=== PATIENT | female | born 1990 | race Caucasian/White ===

== ENCOUNTER 2017-05-25 06:48 | Inpatient (IN) | payer OTHER ==
[~2017-05-25] VITALS: Ht 167.6 cm; Wt 100.2 kg
== END 2017-05-27 11:37 | DRG 775 ==
LOC: LDR 06:48 → OB/GYN 19:48
PROC: 10E0XZZ Delivery of Products of Conception, External Approach (ICD-10-PCS; principal; 2017-05-25)
PROC: 3E033VJ Introduction of Other Hormone into Peripheral Vein, Percutaneous Approach (ICD-10-PCS; 2017-05-25)
PROC: 4A1HXCZ Monitoring of Products of Conception, Cardiac Rate, External Approach (ICD-10-PCS; 2017-05-25)
DX: O80 Encounter for full-term uncomplicated delivery (principal); Z3A.38 38 weeks gestation of pregnancy; Z37.0 Single live birth

== ENCOUNTER 2021-10-29 17:15 | Emergency (ER) | payer OTHER ==
[~2021-10-29] VITALS: Ht 167.6 cm; Wt 89.4 kg
[2021-10-29] MEDS ORDERED: EC-NAPROSYN375 MG PO (22:46)
[2021-10-29] MEDS ORDERED: TAMS0.4C PO (22:46)
== END 2021-10-29 23:25 | disposition home or self-care (01) ==
LOC: ER 17:15
DX: N23 Unspecified renal colic (principal); N13.2 Hydronephrosis with renal and ureteral calculous obstruction; N83.202 Unspecified ovarian cyst, left side

== ENCOUNTER 2022-04-07 08:49 | Day surgery (SDC) | payer OTHER ==
[~2022-04-07 08:49] MED LIST: EC-NAPROSYN375 MG PO; TAMS0.4C PO
== END 2022-04-07 19:10 | disposition home or self-care (01) ==
LOC: CIR.AMB 08:49
PROVIDERS: ATTEND Obstetrics & Gynecology
DX: Z30.2 Encounter for sterilization (principal); Z64.1 Problems related to multiparity; N83.202 Unspecified ovarian cyst, left side; Z20.822 Contact with and (suspected) exposure to COVID-19

== ENCOUNTER 2024-07-04 14:14 | Emergency (ER) | payer OTHER ==
[~2024-07-04] VITALS: Ht 167.6 cm; Wt 52.2 kg
[2024-07-04] MEDS ORDERED: KETOROLAC TROMETHAMINE 30 MG VIAL ONE (15:13)
[2024-07-04] MEDS ORDERED: 0.9 % SODIUM CHLORIDE 1,000 ML IV SCH (15:15)
[2024-07-04] MEDS ORDERED: KETOROLAC TROMETHAMINE 30 MG VIAL IV ONE (15:15)
[2024-07-04 16:11] LABS: PH,URINE 5.5 (5.0-8.0); URINE APPEARANCE Clear; URINE BILIRRUBIN Negative (NEGATIVE); URINE BLOOD Negative; URINE COLOR Yellow; URINE EPITHELIAL CELLS 23.4 uL (0.0-38.8); URINE GLUCOSE Negative (NEGATIVE); URINE KETONE Negative (NEGATIVE); URINE LEUKOCYTE Small; URINE NITRATE Negative; URINE PROTEIN Negative (NEGATIVE); URINE RBC 3.6 uL (0.0-20.8); URINE UROBILINOGEN 0.2 E.U./dl; URINE WBC 54.1 uL (0.0-23.2)
[2024-07-04 16:17] LABS: HEMATOCRIT 36.1 % (36.0-45.00); HEMOGLOBIN 11.9 g/dL (12.0-15.00); MEAN CELL VOLUME 90.5 fL (80.00-100.00); MEAN CORPUSCULAR HEMOGLOBIN 29.8 pg (27.00-32.0); PLATELET COUNT 289 K/uL (150-450); RED BLOOD COUNT 3.99 M/uL (4.00-6.00); RED CELL DISTRIBUTION WIDTH 14.4 % (11.5-14.5)
[2024-07-04 16:26] LABS: URINE CAST 0.73 uL (0.0-1.40)
[2024-07-04 16:40] LABS: ALBUMIN 3.5 gm/dL (3.4-5.0); BILIRUBIN TOTAL 0.35 mg/dL (0.3-1.2); CALCIUM 9.2 mg/dL (8.5-10.1); CREATININE SERUM 0.8 mg/dL (0.55-1.02); GFR 83.12; GLOBULINA 4.8 G/DL (2.4-3.5); POTASSIUM 3.43 mEq/L (3.5-5.1); TOTAL PROTEIN 8.3 gm/dL (6.4-8.2)
== END 2024-07-04 18:19 | disposition home or self-care (01) ==
LOC: ER 14:17
PROVIDERS: General Practice
DX: D27.1 Benign neoplasm of left ovary (principal); R10.2 Pelvic and perineal pain

== ENCOUNTER 2024-07-08 10:46 | Emergency (ER) | payer OTHER ==
[~2024-07-08] VITALS: Ht 167.6 cm; Wt 96.2 kg
[2024-07-08] MEDS ORDERED: DICLOFENAC SODI75 MG PO (11:51)
[2024-07-08] MEDS ORDERED: KETOROLAC TROMETHAMINE 60 MG VIAL IM ONE ×2 (13:30→13:34)
[2024-07-08 13:52] LABS: HEMATOCRIT 35.1 % (36.0-45.00); HEMOGLOBIN 12.6 g/dL (12.0-15.00); MEAN CELL VOLUME 88.9 fL (80.00-100.00); MEAN CORPUSCULAR HEMOGLOBIN 31.8 pg (27.00-32.0); MEAN CORPUSCULAR HGB CONC 35.7 g/dl (32.0-36.0); PLATELET COUNT 294 K/uL (150-450); RED BLOOD COUNT 3.95 M/uL (4.00-6.00); RED CELL DISTRIBUTION WIDTH 14.3 % (11.5-14.5)
[2024-07-08 14:32] LABS: PH,URINE 5.5 (5.0-8.0); URINE APPEARANCE Cloudy; URINE BILIRRUBIN Negative (NEGATIVE); URINE BLOOD Trace; URINE COLOR Yellow; URINE GLUCOSE Negative (NEGATIVE); URINE KETONE Negative (NEGATIVE); URINE LEUKOCYTE Moderate; URINE NITRATE Negative; URINE PROTEIN Negative (NEGATIVE); URINE UROBILINOGEN 0.2 E.U./dl
[2024-07-08 14:35] LABS: URINE BACTERIA 5491.9 uL (0.0-1933); URINE CAST 1.91 uL (0.0-1.40); URINE EPITHELIAL CELLS 19.9 uL (0.0-38.8); URINE RBC 3.8 uL (0.0-20.8); URINE WBC 218.8 uL (0.0-23.2)
[2024-07-08] MEDS ORDERED: ACETAMINOPHEN WITH CODEINE 1 UDTAB TABLET PO ONE (16:30)
== END 2024-07-08 16:46 | disposition home or self-care (01) ==
LOC: ER 10:48
PROVIDERS: Emergency Medicine
DX: D27.9 Benign neoplasm of unspecified ovary (principal)

== ENCOUNTER 2024-07-18 07:13 | Day surgery (SDC) | payer OTHER ==
[2024-07-16 10:49] LABS: URINE APPEARANCE Clear; URINE BILIRRUBIN Negative (NEGATIVE); URINE BLOOD Trace; URINE COLOR Yellow; URINE GLUCOSE Negative (NEGATIVE); URINE KETONE Negative (NEGATIVE); URINE LEUKOCYTE Small; URINE NITRATE Negative; URINE PROTEIN Negative (NEGATIVE); URINE UROBILINOGEN 0.2 E.U./dl
[2024-07-16 10:53] LABS: URINE RBC 2.7 uL (0.0-20.8)
[2024-07-16 11:10] LABS: HEMOGLOBIN 11.3 g/dL (12.0-15.00); MEAN CELL VOLUME 89.8 fL (80.00-100.00); MEAN CORPUSCULAR HEMOGLOBIN 29.7 pg (27.00-32.0); MEAN CORPUSCULAR HGB CONC 33.1 g/dl (32.0-36.0); PLATELET COUNT 298 K/uL (150-450); RED BLOOD COUNT 3.78 M/uL (4.00-6.00); RED CELL DISTRIBUTION WIDTH 14.6 % (11.5-14.5)
[2024-07-16 11:48] LABS: ALBUMIN 3.5 gm/dL (3.4-5.0); BILIRUBIN TOTAL 0.48 mg/dL (0.3-1.2); CREATININE SERUM 0.79 mg/dL (0.55-1.02); GFR 84.34; GLOBULINA 3.9 G/DL (2.4-3.5); POTASSIUM 3.95 mEq/L (3.5-5.1); TOTAL PROTEIN 7.4 gm/dL (6.4-8.2)
[~2024-07-18 07:13] MED LIST changes: +ACETAMINOPHEN-1 EAC1 PO; +DICLOFENAC SODI75 MG PO; +VOLTAREN
[2024-07-18] MEDS ORDERED: POVIDONE-IODINE 118 ML BOTT TOP ONE (11:23)
[2024-07-18] MEDS ORDERED: BUPIVACAINE HCL/MPF 0.5% 30ML VIAL ONE (12:27)
[2024-07-18] MEDS ORDERED: LIDOCAINE HCL 1%/EPINEPHRINE 20ML VIAL IJ ONE (12:27)
[2024-07-18] MEDS ORDERED: SUGAMMADEX SODIUM 200 MG/2 ML VIAL IV ONE (14:52)
[2024-07-18] MEDS ORDERED: MORPHINE SULFATE 4 MG/ML VIAL IV PRN (16:45)
[2024-07-18] MEDS ORDERED: PROMETHAZINE HCL 50 MG/ML AMPUL IM ONE (16:45)
== END 2024-07-18 19:25 | disposition home or self-care (01) ==
LOC: CIR.AMB 07:13
PROVIDERS: ATTEND Obstetrics & Gynecology
DX: D27.1 Benign neoplasm of left ovary (principal); N80.352 Endometriosis of the left pelvic sidewall, unspecified depth; N80.329 Endometriosis of the posterior cul-de-sac, unspecified depth; R10.2 Pelvic and perineal pain

== ENCOUNTER 2024-11-30 07:00 | Inpatient (IN) | payer OTHER ==
[~2024-11-30] VITALS: Ht 167.6 cm; Wt 93.9 kg
[2024-11-30 07:54] VITALS: BP 113/75; O2SAT 99
[2024-11-30 08:14] LABS: URINE APPEARANCE Clear; URINE BILIRRUBIN Negative (NEGATIVE); URINE BLOOD Negative; URINE COLOR Yellow; URINE GLUCOSE Negative (NEGATIVE); URINE KETONE Negative (NEGATIVE); URINE LEUKOCYTE Small; URINE NITRATE Negative; URINE PROTEIN Trace (NEGATIVE); URINE UROBILINOGEN 1.0 E.U./dl
[2024-11-30 08:16] LABS: BASO % 0.6 % (0.1-1.2); EOS # 0.30 (0.04-0.54); EOS % 4.2 % (0.7-7.0); LYMPH # 2.89 (1.18-3.74); LYMPH % 40.1 % (19.3-53.1); MEAN PLATELET VOLUME 9.70 fl (9.4-12.4); MONO # 0.65 (0.24-0.82); MONO % 9.0 % (4.7-12.5); NEUT # 3.31 (1.56-6.13); NEUT % 46.0 % (34.0-71.1); RED CELL DISTRIBUTION WIDTH 13.7 % (11.6-14.4); URINE BACTERIA 1376.1 uL (0.0-1933); URINE EPITHELIAL CELLS 14.4 uL (0.0-38.8); URINE RBC 11.4 uL (0.0-20.8); URINE WBC 54.7 uL (0.0-23.2)
[2024-11-30 08:19] LABS: URINE CAST 0.14 uL (0.0-1.40)
[2024-11-30 08:31] LABS: INR 0.98
[2024-11-30 08:52] LABS: ALT/SGPT 16 U/L (12-78); AST/SGOT 11 U/L (15-37); BILIRUBIN TOTAL 0.45 mg/dL (0.3-1.2); BUN CREA RATIO 17 (7.0-25.0); CREATININE SERUM 0.78 mg/dL (0.55-1.02); GFR 85.05; GLOBULINA 3.8 G/DL (2.4-3.5); GLUCOSE FASTING 93 mg/dL (65-100); OSMOLALITY SERUM 281 MOSM/KG (275-295)
[2024-11-30 08:53] LABS: HCG QUANTITATIVE < 1 mUI/mL (1-3)
[2024-11-30 09:31] LABS: RH POSITIVE
[2024-12-05] MEDS ORDERED: HEPARIN SODIUM,PORCINE 5,000 UNITS/ML VIAL SUBCUTANEO ONE (11:15)
[2024-12-05] MEDS ORDERED: METRONIDAZOLE/SODIUM CHLORIDE 500 MG/100 ML PIGGYBACK IV ONE (13:00)
[2024-12-05] MEDS ORDERED: BUPIVACAINE HCL 30 ML VIAL IJ ONE (13:00)
[2024-12-05] MEDS ORDERED: CEFAZOLIN SODIUM 1,000 MG VIAL IV ONE (13:00)
[2024-12-05] MEDS ORDERED: POVIDONE-IODINE 118 ML BOTT TOP ONE (13:00)
[2024-12-05] MEDS ORDERED: THROMBIN,HU/FIBRINOGEN/CALCIUM 10 ML SYRINGE TOP ONE (14:15)
[2024-12-05] MEDS ORDERED: RINGERS SOLUTION,LACTATED 1,000 ML IV SCH (14:45)
[2024-12-05] MEDS ORDERED: GABAPENTIN 300 MG CAPSULE PO SCH (17:00)
[2024-12-05] MEDS ORDERED: KETOROLAC TROMETHAMINE 30 MG VIAL IV SCH (18:00)
[2024-12-05] MEDS ORDERED: ACETAMINOPHEN 500 MG GEL..CAP PO SCH (18:05)
[2024-12-05 19:27] VITALS: BP 112/74
[2024-12-05] MEDS ORDERED: ONDANSETRON HCL 2 MG/ML VIAL IV PRN (21:00)
[2024-12-06 02:08] VITALS: BP 102/64
[2024-12-06 06:24] LABS: BASO % 0.3 % (0.1-1.2); EOS # 0.12 (0.04-0.54); EOS % 1.3 % (0.7-7.0); LYMPH # 2.60 (1.18-3.74); LYMPH % 27.5 % (19.3-53.1); MEAN PLATELET VOLUME 9.70 fl (9.4-12.4); MONO # 0.77 (0.24-0.82); MONO % 8.1 % (4.7-12.5); NEUT # 5.91 (1.56-6.13); NEUT % 62.4 % (34.0-71.1); RED CELL DISTRIBUTION WIDTH 13.6 % (11.6-14.4)
[2024-12-06 08:00] VITALS: BP 119/75
== END 2024-12-06 10:29 | disposition home or self-care (01) | DRG 743 ==
LOC: SURH 12-05 07:00 → O/R 12-05 11:39 → OB/GYN 12-05 15:09
PROVIDERS: ADMIT Student in an Organized Health Care Education/Training Program; ATTEND Student in an Organized Health Care Education/Training Program
PROC: 0TN74ZZ Release Left Ureter, Percutaneous Endoscopic Approach (ICD-10-PCS; 2024-12-05)
PROC: 0UN14ZZ Release Left Ovary, Percutaneous Endoscopic Approach (ICD-10-PCS; 2024-12-05)
PROC: 0DNP4ZZ Release Rectum, Percutaneous Endoscopic Approach (ICD-10-PCS; 2024-12-05)
PROC: 0DNN4ZZ Release Sigmoid Colon, Percutaneous Endoscopic Approach (ICD-10-PCS; 2024-12-05)
PROC: 0DNV4ZZ Release Mesentery, Percutaneous Endoscopic Approach (ICD-10-PCS; 2024-12-05)
PROC: 0TJB8ZZ Inspection of Bladder, Via Natural or Artificial Opening Endoscopic (ICD-10-PCS; 2024-12-05)
PROC: 0UT94ZZ Resection of Uterus, Percutaneous Endoscopic Approach (ICD-10-PCS; principal; 2024-12-05 09:15)
DX: N80.03 Adenomyosis of the uterus (principal); N84.1 Polyp of cervix uteri; N72 Inflammatory disease of cervix uteri; N94.6 Dysmenorrhea, unspecified; N93.9 Abnormal uterine and vaginal bleeding, unspecified; R10.2 Pelvic and perineal pain; N80.9 Endometriosis, unspecified; K66.0 Peritoneal adhesions (postprocedural) (postinfection)